=== PATIENT | female | born 1985 | race Caucasian/White ===

== ENCOUNTER 2020-01-06 08:16 | Emergency (ER) | payer OTHER, MEDICAID, SELFPAY ==
[2020-01-06 08:18] VITALS: BP 135/85; PULSE 89; RESP 14; TEMP 36.7; O2SAT 100; BMI 18.8
--- NOTE | 2020-01-06 08:24 | ED.DCSUM_ITS ---
History of Present Illness Chief Complaint: Anxiety Informant: Patient Narrative: 34-year-old female presenting with anxiety for the last 2 days. She states she does not have a specific trigger. She has a history of anxiety and usually takes hydroxyzine and this works for her. She is also on BuSpar and Wellbutrin. She states she has a feeling of palpitations but does not have specific chest pain shortness of breath. She not had a fever, cough. She states that she feels like her muscles are cramping all over her body. She has not been able to follow-up with her PCP being that it happened over the weekend. She states she is never been this anxious before. Prior similar symptoms: Yes Past Medical History - Allergies and Home Meds Allergies/Adverse Reactions: Allergies No Known Allergies Allergy (Verified 01/06/20 08:17) Primary Care Physician: Cesar Byrd MD [NON-STAFF] - Prior records reviewed: Yes Past Medical History: - - Reviewed in problem list Surgical History: - - Tubal ligation Lives: Alone Smoking Status: Former smoker Alcohol: None Drugs: None Review of Systems General: Denies: Chills, Fever, Sweats Eyes: Denies: Visual changes - bilaterally, Diplopia ENT: Denies: Rhinorrhea, Sore throat Cardiovascular: Reports: Palpitations, Heart racing Respiratory: Denies: Dyspnea, Cough, Dyspnea on exertion Gastrointestinal: Reports: Nausea. Denies: Vomiting, Diarrhea, Constipation Genitourinary: Denies: Dysuria, Hematuria, Frequency Musculoskeletal: Denies: Arthralgias, Neck pain, Swelling Skin: Denies: Rash, Wounds Neurological: Denies: Headache, Weakness, Numbness Psych: Reports: Anxiety. Denies: Suicidal thoughts, Suicidal ideations Physical Exam Vital Signs/Narrative: Vital Signs Temp Pulse Resp BP Pulse Ox 01/06/20 08:18 98.1 F 89 14 135/85 H 100 General: Well nourished, No Acute Distress Head: Normocephalic, Atraumatic Eyes: Perrl, EOMI ENT: Moist mucous membranes, No rhinorrhea Cardiovascular: Regular rate, Regular rhythm Respiratory: No distress, CTA bilaterally Extremities: No edema. Negative for: Tenderness Skin: Normal color, No rash. Negative for: Cyanosis, Diaphoresis Neurological: Alert, Oriented x3 Psychological: - - Anxious. Negative for: Tearful, Agitated Diagnostic/Tx/Re-eval Clinical Impression(s) from Imaging Studies Chest X-Ray 01/06/20 09:25 IMPRESSION: Normal x-ray examination of the chest. Electronically Signed: Cezar Dong, at 9:48 EST , Service support , Laboratory Data 01/06/20 01/06/20 01/06/20 09:00 09:00 09:00 WBC 7.2 RBC 4.28 Hgb 13.1 Hct 40.0 MCV 93.5 MCH 30.6 MCHC 32.8 RDW Std Deviation 42.8 RDW Coeff of Sharee 12.6 Plt Count 302 MPV 9.2 Immature Gran % (Auto) 0.300 Neut % (Auto) 73.4 H Lymph % (Auto) 18.[address] [place] % (Auto) 6.1 Eos % (Auto) 0.7 Baso % (Auto) 1.3 H Absolute Neuts (auto) 5.3 Absolute Lymphs (auto) 1.30 Nucleated RBC % 0 D-Dimer Quant (PE/DVT) <= 0.27 Sodium 138 Potassium 3.2 L Chloride 104 Carbon Dioxide 30.0 Anion Gap 4 L BUN 10 Creatinine 0.90 Estim Creat Clear Calc 73.83 Est GFR (MDRD) Af Amer 93 Est GFR (MDRD) Non-Af 77 BUN/Creatinine Ratio 11.2 Glucose 86 Calcium 9.1 Magnesium 2.0 Troponin I < 0.015 - Rhythm Strip Rhythm Strip: Sinus Rhythm Rate: 91 - EKG Initial EKG Interpretation: Sinus Rhythm, Non-Specific ST Changes - Medical Decision Making 84-year-old female with history of bipolar disorder on multiple medications having breakthrough anxiety. She states she was not able to get a hold of her physician over the weekend and she had 2 days of worsening anxiousness. She does not have suicidal or homicidal ideation. She does not appear to be manic. She was given a milligram of Ativan IV as well as IV fluids, and I did check blood work which is fairly unremarkable with exception of a potassium of 3.2. D-dimer is negative. Troponin is negative. Magnesium is normal. Chest x-ray is negative. Patient feels much improved. Dr. Murray not in office today but ct s nursing staff was able to make an appointment for at 2:30 [id number] in office. This was discussed with the patient. They requested labs and imaging reports for that appointment and this was performed. Patient was also given a prescription for Ativan 0.5 mg x 12 for breakthrough anxiety. She is given return precautions. Patient stable for discharge at this time. Impression: 1. Breakthrough anxiety ED Disposition - Plan for ED Patient: Disposition: Home or Assisted Living Instructions: ED Anxiety Reaction Prescriptions: Lorazepam [Ativan] 0.5 mg PO DAILY #12 tab Prescription Printed Referrals: Cesar Byrd MD [NON-STAFF] -
--- NOTE | 2020-01-06 08:35 | EKG12_ITS ---
Test Reason : DYSRHYTHMIA Blood Pressure : / mmHG Vent. Rate : 091 BPM Atrial Rate : 091 BPM P-R Int : 136 ms QRS Dur : 082 ms QT Int : 366 ms P-R-T Axes : 081 079 000 degrees QTc Int : 450 ms Normal sinus rhythm T wave abnormality, consider inferior ischemia Abnormal ECG Confirmed by CRISTHIAN HUERTA, CANDE ([id number]), scientific publications editor JAIRO DECKER ([id number]) on 01/07/2020 9:23:31 AM Referred By: ZEENAT Confirmed By:CANDE MORROW MD
[2020-01-06] MEDS: 0.9% Normal Saline 1,000 ML 1000 ML IV (08:55)
[2020-01-06] MEDS: LORazepam 2 MG/ML Syringe 1 MG IV (08:56)
[2020-01-06 09:01] VITALS: BP 120/84; PULSE 96; RESP 19; O2SAT 100
[2020-01-06 09:04] LABS: Absolute Neutrophil Count 5.3 X10^3/uL (2.0-7.7); Basophil# 0.09 X10^3/uL; Basophil% 1.3 % (0-1); Eosinophil# 0.05 X10^3/uL; Eosinophils% 0.7 % (0-5); Hemoglobin 13.1 g/dL (12.0-15.0); Lymphocyte % 18.2 % (19-41); Mean Corp Hgb Conc 32.8 g/dL (32-36); Mean Corpuscular Hgb 30.6 pg (27.0-32.0); Mean Corpuscular Volume 93.5 fL (81-99); Mean Platelet Vol. 9.2 fl (6.2-12.0); Monocyte# 0.44 X10^3/uL; Monocyte% 6.1 % (0-10); NRBC Flagged by Analyzer 0 % (0-5); Neutrophil # 5.26 X10^3/uL (2.7-7.7); Neutrophil % 73.4 % (47-70); Platelet Count 302 K/mm3 (150-450); RBC Distribution Width CV 12.6 % (11.6-14.6); RBC Distribution Width SD 42.8 fl (35.1-43.9); Red Blood Count 4.28 M/mm3 (4.2-5.4); White Blood Count 7.2 K/mm3 (4.4-11.0)
[2020-01-06 09:16] LABS: D-Dimer Quantitative (DVT/PE) <= 0.27 FEU/ug/m (0.27-0.49)
[2020-01-06 09:21] LABS: Anion Gap 4 (5-15); BUN 10 mg/dL (7-18); BUN/Creat Ratio 11.2 RATIO (10-20); Calcium,Total 9.1 mg/dL (8.5-10.1); Chloride 104 mmol/L (98-107); EST Glomerular Filtration Rate 77 mL/min (>60); Est Glom Filt Rate - Afr Amer 93 mL/min (>60); Estimated Creatinine Clearance 73.83 ml/min; Glucose 86 mg/dL (74-106); Potassium 3.2 mmol/L (3.5-5.1); Sodium Level 138 mmol/L (136-145)
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
[2020-01-06 10:02] VITALS: BP 122/80; PULSE 82; RESP 17; O2SAT 100
--- NOTE | 2020-01-06 10:26 | CM.ED ---
Social Work Consult: Anxiety Informant: Dr. Liu Chief Complaint: Increased Anxiety over the past two days, unable to manage with prescribed medications. Marital/Social History: Single Living Situation: Has private home. Patient two children age 7 and 11 live with patient. Support/Resources: [facility]. Patient follows with Dr. Murray for psychiatric services. Patient with history of counseling services through the [facility] but no active counseling services. Education/Employment: Denies issues with comprehension or understanding. 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 Mental Health Treatment/history: Anxiety, Bi-polar. Patient reports to be compliant with medications. Patient denies suicidal thoughts/plans/intents. Patient reports to rapid cycle but to typically be able to manage on own at home. Patient reports to have never had an attack like the past few days with patient Anxiety. Patient states last episode was 6 months ago. Triggers/Stressors: Patient unsure what triggered patient. Mental Status Exam: A&Ox3 General appearance: Appropriate. Clean. Calm. Mood/Affect: Appropriate. Pleasant. Communication Pattern: Responds to questions. Assessment: Met with patient in room. Introduced self and health and social care teacher role. Patient agreeable to speak with this health and social care teacher. Dr. Liu able to establish follow-up appointment for patient with Dr. Murray's nurse for 2019 at 2:30p. Patient is comfortable with follow-up appointment time and date. Patient open to this health and social care teacher providing patient with resources for the crisis hotline, [facility] Behavioral Health, Local counseling agencies and appointment reminder for . Patient with no concerns on returning to home. Patient reports to have positive family support in the community. Patient denies issues with transportation. Updated Dr. Liu on above. PLAN: Discharge to home with [facility] follow-up on . Daniela DAVIS, ADRY
[2020-01-06 10:28] VITALS: RESP 17
== END 2020-01-06 10:29 | disposition home or self-care (01) ==
PROVIDERS: Emergency Provider Student in an Organized Health Care Education/Training Program; PCP Internal Medicine
DX: F41.9 Anxiety disorder, unspecified (principal); F31.9 Bipolar disorder, unspecified; Z87.891 Personal history of nicotine dependence
CPT/HCPCS: 71045; 80048; 83735; 84484; 85025; 85379; 93005; 96361; 96374; 99284; J7030

== ENCOUNTER 2020-11-29 17:14 | Emergency (ER) | payer OTHER, MEDICAID, SELFPAY ==
[2020-11-29 17:15] VITALS: BP 117/73; PULSE 82; RESP 16; TEMP 36.7; O2SAT 97; BMI 17.8
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
[2020-11-29] MEDS: 0.9% Normal Saline 1,000 ML 150 ML IV (17:44)
[2020-11-29] MEDS: Ondansetron 4 MG/2 ML Vial IV (17:44)
[2020-11-29] MEDS: Morphine 4 MG/ML Syringe IV (17:44)
[2020-11-29 17:47] VITALS: O2SAT 95
[2020-11-29 17:59] LABS: Absolute Lymphocyte Count 1.99 X10^3/uL (0.83-4.51); Eosinophil# 0.02 X10^3/uL; Eosinophils% 0.2 % (0-5); Hematocrit 36.5 % (37-47); Hemoglobin 12.3 g/dL (12.0-15.0); Lymphocyte # 1.99 X10^3/ul (0.83-4.51); Lymphocyte % 20.3 % (19-41); Mean Corp Hgb Conc 33.7 g/dL (32-36); Mean Corpuscular Hgb 30.4 pg (27.0-32.0); Mean Corpuscular Volume 90.3 fL (81-99); Mean Platelet Vol. 9.9 fl (6.2-12.0); Monocyte# 0.62 X10^3/uL; Monocyte% 6.3 % (0-10); NRBC Flagged by Analyzer 0 % (0-5); Neutrophil # 7.02 X10^3/uL (2.7-7.7); Neutrophil % 71.8 % (47-70); Platelet Count 322 K/mm3 (150-450); RBC Distribution Width CV 13.9 % (11.6-14.6); RBC Distribution Width SD 46.1 fl (35.1-43.9); Red Blood Count 4.04 M/mm3 (4.2-5.4); White Blood Count 9.8 K/mm3 (4.4-11.0)
[2020-11-29 18:22] LABS: ALB/GLOB Ratio 1.2 RATIO (0.9-2.4); AST(SGOT) 27 U/L (15-37); Alanine Aminotransfer ALT/SGPT 26 U/L (13-56); Albumin, Serum 3.9 g/dL (3.2-5.0); Alkaline Phosphatase 61 U/L (45-117); Anion Gap 10 (5-15); BUN 20 mg/dL (7-18); BUN/Creat Ratio 27.7 RATIO (10-20); Calcium,Total 8.7 mg/dL (8.5-10.1); Chloride 111 mmol/L (98-107); Creatinine, Serum 0.72 mg/dL (0.55-1.02); EST Glomerular Filtration Rate 98 mL/min (>60); Est Glom Filt Rate - Afr Amer 118 mL/min (>60); Estimated Creatinine Clearance 86.25 ml/min; Globulin 3.2 g/dL (2.2-4.2); Glucose 93 mg/dL (74-106); Potassium 3.6 mmol/L (3.5-5.1); Protein, Total 7.1 g/dL (6.4-8.2); Sodium Level 144 mmol/L (136-145)
[2020-11-29 18:26] LABS: Internal QC Validated? YES +Cl - CLEAR BKGD; Pregnancy, Serum, hCG Quali. NEGATIVE Negative
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
[2020-11-29 19:39] VITALS: BP 116/80; PULSE 73; RESP 14
[2020-11-29 20:28] VITALS: BP 113/81
== END 2020-11-29 20:29 | disposition home or self-care (01) ==
PROVIDERS: Emergency Provider Emergency Medicine; PCP Internal Medicine
DX: S20.219A Contusion of unspecified front wall of thorax, initial encounter (principal); S80.02XA Contusion of left knee, initial encounter; S70.01XA Contusion of right hip, initial encounter; V89.0XXA Person injured in unspecified motor-vehicle accident, nontraffic, initial encounter; Y93.89 Activity, other specified; Y92.410 Unspecified street and highway as the place of occurrence of the external cause; Y99.9 Unspecified external cause status; F10.129 Alcohol abuse with intoxication, unspecified; Y90.4 Blood alcohol level of 80-99 mg/100 ml; F32.A Depression, unspecified; F41.9 Anxiety disorder, unspecified; Z79.899 Other long term (current) drug therapy
CPT/HCPCS: 36415; 70450; 71260; 72125; 73564; 74177; 80053; 82077; 84703; 85025; 96361; 96374; 96375; 99285; J7030; Q9967; A4216; J2405

== ENCOUNTER 2020-12-03 13:30 | Emergency (ER) | payer OTHER, MEDICAID, SELFPAY ==
[2020-12-03 13:31] VITALS: BP 144/108; PULSE 76; RESP 16; TEMP 37.3; BMI 17.7
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
== END 2020-12-03 14:00 | disposition left against medical advice (07) ==
LOC: ED 14:57
PROVIDERS: PCP Internal Medicine
DX: R69 Illness, unspecified (principal); Z53.21 Procedure and treatment not carried out due to patient leaving prior to being seen by health care provider

== ENCOUNTER 2021-12-15 09:17 | Emergency (ER) | payer OTHER, MEDICAID, SELFPAY ==
[2021-12-15 09:19] VITALS: BP 144/98; PULSE 100; RESP 18; TEMP 36.6; O2SAT 98; BMI 20.2
--- NOTE | 2021-12-15 09:45 | EDS_ITS ---
HPI History of Present Illness Chief Complaint: Anxiety Detail of Chief Complaint: Anxiety and alcohol abuse Informant: patient and parent Narrative Narrative: Patient presents to the emergency department with complaint of not feeling well. Patient states that she missed her appointment with psychiatrist 3 days ago because she had been drinking all weekend and slept through her appointment. Patient states over the last 3 days she had been drinking more heavily. She thinks she might be dehydrated. She feels shaky and jittery. Patient tells me her last drink was yesterday. She denies chest pain or shortness of breath. She denies recent illness. Patient is depressed as she states that her left her and her kids dad went to penitentiary. Patient denies suicidal ideation and states she would never hurt herself because of her kids. She denies auditory or visual hallucinations. [facility] symptoms: [facility] Medical History (Updated 12/15/21 @ 11:[address] Pam Platt, DO) Anxiety Depression Home Medications buspirone 10 mg tablet 10 mg PO BID 01/06/20 [History Last Taken Unknown] lamotrigine 100 mg tablet 100 mg PO BID 01/06/20 [History Last Taken Unknown] ferrous sulfate 325 mg (65 mg iron) tablet (Iron (ferrous sulfate)) 325 mg PO DAILY 12/15/21 [History Last Taken Unknown] lorazepam 1 mg tablet (Ativan) 1 mg PO TID PRN anxiety #10 tabs 12/15/21 [Rx Last Taken Unknown] Allergy/AdvReac Type Severity Reaction Status Date / Time No Known Allergies Allergy Verified 12/15/21 09:22 Social History Smoking Status: Former smoker ROS ROS ED Review of Systems ROS Unobtainable: other Constitutional Constitutional ED: Reports lethargy; Denies chills, fever(s), sweats or weight loss Eyes Eyes: Reports blurry vision; Denies change in vision or diplopia ENT ENT ED: Denies rhinorrhea or sore throat Cardiovascular Cardiovascular: Denies chest pain, orthopnea or racing heartbeat Respiratory/Chest Respiratory/Chest: Denies cough, dyspnea, dyspnea on exertion, orthopnea or sputum Gastrointestinal Gastrointestinal: Reports nausea; Denies abdominal pain, diarrhea or vomiting Genitourinary Genitourinary ED: Denies dysuria, hematuria or urinary frequency Musculoskeletal Musculoskeletal: Denies arthralgias, back pain, myalgias or neck pain Integumentary Denies abscess, Abrasions or rash Neurologic Neurologic: Reports other Details: Feels shaky ; Denies headache(s) or weakness Psychiatric Psychiatric: Reports anxiety and depression; Denies suicidal thoughts Endocrine Endocrinology: Denies polydipsia, polyphagia or polyuria Hematologic/Lymphatic Hematologic/Lymphatic: Denies easy bleeding, easy bruising or lymphadenopathy Allergic/Immunologic Allergic/Immunologic ED: Denies mouth swelling, tongue swelling or urticaria EXAM Physical Exam Const Vital Signs: 12/15/21 09:19 Temperature 97.8 F Temperature Source Temporal Pulse Rate 100 Respiratory Rate 18 Blood Pressure 144/98 H Blood Pressure Mean 113 Pulse Ox 98 Oxygen Delivery Method Room Air Positive well nourished and well developed General Appearance ED: well developed and NAD HEENT Reports TM's clear and moist mucous membranes normocephalic and atraumatic; Negative for trauma or tenderness Tympanic Membrane ED: Yes TM's clear Eyes PERRL and EOMs intact bilaterally General Eye ED: Negative for pale conjunctiva or scleral icterus Neck no lymphadenopathy, supple and no JVD General: Negative for tenderness Chest Wall inspection of chest normal and palpation of chest normal Chest: Negative for tenderness Resp normal respiratory effort and clear to auscultation bilaterally Effort and Inspection: Negative for respiratory distress or pain with movement Auscultation: Negative for rhonchi, wheezes or diminished lung sounds Cardio regular rate, regular rhythm, S1 normal heart sound, S2 normal heart sound and no murmurs Peripheral Pulses: pulses 2+ throughout GI normal to inspection, nondistended, normoactive bowel sounds, soft to palpation, non-tender, non-distended and no masses Back/Spine no CVA tenderness and no thoracic nor lumbar tenderness Extremity normal to inspection General Extremety ED: Negative for edema General Extremity: Negative for edema Neuro oriented x3, CN's II-XII intact bilaterally, no sensory deficits noted and gait normal Sensorium / Orientation: awake, alert, oriented to person, oriented to place and oriented to time Motor Exam: strength 5/5 throughout and strength abnormal Psych mental status grossly normal Skin no rashes or lesions noted and no wounds MDM MDM MDM Narrative Medical decision making narrative: IV line established on arrival. Patient was given Ativan 1 mg IV. Patient was given a normal saline fluid bolus of 1 L. Patient felt symptomatically significantly improved. I did have our social insurance specialist talk to the patient and give her resources and she will be able to be seen here at the hospital tomorrow for mental health services. I will write her prescription for a few Ativan as needed for anxiety. I recommended discontinuing her alcohol abuse. Lab Data Attestation: I reviewed the patient's lab results. Labs: Laboratory Results - last 24 hr 12/15/21 12/15/21 12/15/21 10:11 10:11 10:11 WBC 7.8 RBC 4.26 Hgb 13.6 Hct 40.1 MCV 94.1 MCH 31.9 MCHC 33.9 RDW Std Deviation 51.5 H RDW Coeff of Sharee 14.7 H Plt Count 274 MPV 9.2 Immature Gran % (Auto) 0.300 Neut % (Auto) 80.1 H Lymph % (Auto) 11.6 L [place] % (Auto) 6.9 Eos % (Auto) 0.0 Baso % (Auto) 1.1 H Absolute Neuts (auto) 6.3 Absolute Lymphs (auto) 0.91 Nucleated RBC % 0 Sodium 137 Potassium 3.5 Chloride 102 Carbon Dioxide 30.0 Anion Gap 5 BUN 11 Creatinine 0.66 Estim Creat Clear Calc 102.69 Est GFR (MDRD) Af Amer 131 Est GFR (MDRD) Non-Af 108 BUN/Creatinine Ratio 16.7 Glucose 102 Calcium 8.4 L Total Bilirubin 0.80 AST 53 H ALT 42 Alkaline Phosphatase 68 Total Protein 7.2 Albumin 4.0 Globulin 3.2 Albumin/Globulin Ratio 1.2 Serum , Qual n Discharge Plan Triage Chief Complaint: Anxiety ED Provider: Pam Platt Dx/Rx/DC Orders Clinical Impression: Anxiety, Alcohol abuse Instructions: ED Anxiety Reaction, ED Alcohol Abuse Prescriptions: New lorazepam [Ativan] 1 mg tablet 1 mg PO TID PRN (Reason: anxiety) Qty: 10 0RF No Action buspirone 10 MG tablet 10 mg PO BID lamotrigine 100 MG tablet 100 mg PO BID ferrous sulfate [Iron (ferrous sulfate)] 325 mg (65 mg iron) Tablet 325 mg PO DAILY Primary Care Provider: Almita Paul Referrals: Almita Paul MD [Primary Care Provider] - 3-5 Days Activity Restrictions/Additional Instructions: Follow-up for mental health services. Disposition Disposition: Home, Self Care
[2021-12-15] MEDS: LORazepam 2 MG/ML Syringe 1 MG IV (10:10)
[2021-12-15] MEDS: 0.9% Normal Saline 1,000 ML 1000 ML IV (10:10)
[2021-12-15 10:20] LABS: Absolute Lymphocyte Count 0.91 X10^3/uL (0.83-4.51); Absolute Neutrophil Count 6.3 X10^3/uL (2.0-7.7); Basophil# 0.09 X10^3/uL; Basophil% 1.1 % (0-1); Hematocrit 40.1 % (37-47); Hemoglobin 13.6 g/dL (12.0-15.0); Lymphocyte # 0.91 X10^3/ul (0.83-4.51); Lymphocyte % 11.6 % (19-41); Mean Corp Hgb Conc 33.9 g/dL (32-36); Mean Corpuscular Hgb 31.9 pg (27.0-32.0); Mean Corpuscular Volume 94.1 fL (81-99); Mean Platelet Vol. 9.2 fl (6.2-12.0); Monocyte# 0.54 X10^3/uL; Monocyte% 6.9 % (0-10); NRBC Flagged by Analyzer 0 % (0-5); Neutrophil # 6.28 X10^3/uL (2.7-7.7); Neutrophil % 80.1 % (47-70); Platelet Count 274 K/mm3 (150-450); RBC Distribution Width CV 14.7 % (11.6-14.6); RBC Distribution Width SD 51.5 fl (35.1-43.9); Red Blood Count 4.26 M/mm3 (4.2-5.4); White Blood Count 7.8 K/mm3 (4.4-11.0)
[2021-12-15 10:35] LABS: ALB/GLOB Ratio 1.2 RATIO (0.9-2.4); AST(SGOT) 53 U/L (15-37); Alanine Aminotransfer ALT/SGPT 42 U/L (13-56); Alkaline Phosphatase 68 U/L (45-117); Anion Gap 5 (5-15); BUN 11 mg/dL (7-18); BUN/Creat Ratio 16.7 RATIO (10-20); Calcium,Total 8.4 mg/dL (8.5-10.1); Chloride 102 mmol/L (98-107); Creatinine, Serum 0.66 mg/dL (0.55-1.02); EST Glomerular Filtration Rate 108 mL/min (>60); Est Glom Filt Rate - Afr Amer 131 mL/min (>60); Estimated Creatinine Clearance 102.69 ml/min; Globulin 3.2 g/dL (2.2-4.2); Glucose 102 mg/dL (74-106); Potassium 3.5 mmol/L (3.5-5.1); Protein, Total 7.2 g/dL (6.4-8.2); Sodium Level 137 mmol/L (136-145)
[2021-12-15 10:43] LABS: Internal QC Validated? YES +Cl - CLEAR BKGD; Pregnancy, Serum, hCG Quali. n Negative
--- NOTE | 2021-12-15 11:06 | CM.ED ---
Social Work Consult: Mental Health Referral source: Dr. Platt Informants: Dr. Platt, patient, patient mother (Enrike), and medical chart. Chief Complaint: Patient reports to have not been taking medication due to drinking alcohol. Patient states to want to get help. Patient states to have missed first appointment with Pyschiatrist at [facility] and now can't get in until 2021. Marital/Social History: to Buck Morales. Patient reports that Buck walked out in 2021 and is no longer involved in patient life. Living Situation: Lives in private home with patient two childre, a 9 and 13 year old. Support/Resources: Patient main support person is patient mother, Enrike. Patient identifies a friend, Micki as someone that checks in with patient as well. Patient reports no active counseling or psychiatric services due to discontinuing care with [facility] de to not being a good fit. History: Denies. Education/Employment History: Patient reports to have completed High School. Patient denies any issues with comprehension or understanding. Patient currently works at [employer]. Mental Health Treatment/History: Anxiety, mood disorder per patient report. Patient reports to be taking Lamictal, buspirone, and Prozac. Patient reports that medications have been prescribed by patient psychiatrist at the counseling center. Patient reports to have enough medication to get patient through until January, when patient sees psychiatrist through [facility]. Patient denies history of inpatient psychiatric placement. Triggers/Stressors: multiple things. Patient reports stress with not knowing how to get mental health needs met. Patient also identifies that the father of patient childrenTaqueria is now in correction and to have discovered this last week. Patient mother states that really bugs her. Coping Skills: Patient denies any current coping skills. Patient reports to have little interest in anything right now. Abuse Issues: Denies Substance Abuse Hx: Patient reports alcohol abuse for the past three days. Patient reports to typically not use alcohol due to medications that patient is prescribed. Patient states to not be taking medications due to drinking. Patient denies concern with current alcohol use outside of the past three days. Patient states to have identified that patient needed to reach out and that is why patient is now at the [facility] ED today with patient mother. Patient denies other substance abuse/use. Risk to Self/Others: Patient denies suicidal thoughts, plans, intent or history of. Patient denies homicidal thoughts, plans, intents or history of. Patient denies self harming behavior or violence against others or history of both. Mental Status Exam: A&Ox3 Appearance/General Behavior: Disheveled. Calm. Mood/Affect: Flat affect. Communication Pattern: Responds to questions. Thought Process: Appropriate. Denies visual or auditory hallucinations or paranoia. Insight: Good Judgement: Fair Assessment: Met with patient in room. Introduced self and psychotherapist social worker role. Patient agreeable to speak with this psychotherapist social worker. Patient mother, Sabr present. Patient provided verbal permission for this psychotherapist social worker to speak openly with Sabr present. Patient reports to not be feeling anything right now and to have a desire to get set up with counseling/psychiatric services sooner rather then later. This psychotherapist social worker completed PHQ-9 assessment with patient. Patient scored 23/27: Severe depression on PHQ-9 assessment. Patient expresses desire to live and obtain help. Patient reports to be living for patient children. Patient forward thinking and able to self initiate reaching out for help. Sabr reports that patient has reached out several times over the past week for support. This psychotherapist social worker inquired if patient has been abusing alcohol around patient children, patient reports that patient children have been with Sabr and to have not been drinking around children. This psychotherapist social worker broached topic of [facility] Behavioral Health program. Patient is agreeable to this psychotherapist social worker making referral. This psychotherapist social worker educating patient that patient is also able to reach out to [facility] Behavioral Health program to set up intake appointment if patient does not receive a phone call in the next few days, patient voiced understanding. Sabr reports plan to assist patient with getting appointment set up. Sabr plans to continue to check in with patient. This psychotherapist social worker counseled patient on lethal means. Patient reports to have no firearms or stock pile of medication in patient home. Active support and listening provided. This psychotherapist social worker provided patient with resources for counseling services that are local to patient geographical region, as well as crisis hotline number and information on [facility] Behavioral Health program. Sabr feels comfortable with plan for patient to discharge to the community. Patient reports to feel safe to self. This psychotherapist social worker updated Dr. Platt on above information. Dr. Platt agreeable to patient discharging to the community with mental health follow up. Interventions: Social Work assessment PHQ-9 assessment Provided resources PLAN: Discharge to the community with mental health follow-up. No further services requested or indicated. Daniela DAVIS, ADRY
== END 2021-12-15 11:41 | disposition home or self-care (01) ==
PROVIDERS: Emergency Provider Emergency Medicine; PCP Internal Medicine; Visit Provider Emergency Medicine
DX: F41.9 Anxiety disorder, unspecified (principal); F10.10 Alcohol abuse, uncomplicated; F32.A Depression, unspecified; Z79.899 Other long term (current) drug therapy; Z87.891 Personal history of nicotine dependence
CPT/HCPCS: 80053; 84703; 85025; 99284